=== PATIENT | female | born 1945 | race Caucasian/White ===

== ENCOUNTER 2024-01-19 15:42 | Day surgery (SDC) | payer MEDICARE, OTHER ==
[2024-01-19] MEDS ORDERED: Depo-Medrol 40 MG/ML IM ONE (15:43)
[2024-01-19] MEDS ORDERED: LIDOCAINE HCL 1% AMPUL 5 ML IJ ONE (15:43)
[2024-01-19] MEDS ORDERED: BUPIVACAINE 0.5% VIAL IJ ONE (15:43)
--- NOTE | 2024-01-19 19:16 | XRAY ---
Indication: Right SI joint injection. Intraoperative fluoroscopy provided for 36 seconds. 4 digital spot images submitted for interpretation demonstrates posterior needle tip projecting over right SI joint. Small amount of contrast injected for needle tip placement. Correlate with intraoperative findings/report.
--- NOTE | 2024-01-20 08:37 | XRAY ---
36 seconds of fluoroscopy was used in surgery for a right sacroiliac joint injection.
== END 2024-01-19 18:30 | disposition home or self-care (01) ==
LOC: SDC-PAIN 15:42
PROVIDERS: ATTEND Psychiatry & Neurology Pain Medicine
DX: M46.1 Sacroiliitis, not elsewhere classified (principal)
CPT/HCPCS: 27096; 72170; 77002; G0260; Q9966